=== PATIENT | female | born 1990 | race Caucasian/White ===

== ENCOUNTER → 2020-10-03 03:33 | Outpatient (CLI) | payer BC, SELFPAY ==
[2020-10-04 03:38] LABS: SARS-CoV-2 RNA PCR Negative
== END ==
PROVIDERS: PCP Physician Assistant; Visit Provider Physician Assistant
DX: Z20.822 Contact with and (suspected) exposure to COVID-19 (principal); R09.89 Other specified symptoms and signs involving the circulatory and respiratory systems
CPT/HCPCS: C9803; U0003; U0005

== ENCOUNTER 2021-11-09 00:18 | Day surgery (SDC) | payer BC, SELFPAY ==
[2021-11-05 11:58] VITALS: BMI 21.6
--- NOTE | 2021-11-05 12:06 | PC.NURSE ---
Report to the Outpatient Waiting Room, entrance under the green pavilion located off [facility], at time 1130 on date 11/09/21. OR Time: 1330. Time changes happen often and if your time is changed the preop area will call you the afternoon before. - You and your visitor will be asked to self-screen and do not enter if you have any COVID symptoms. - Only one visitor and NO children visitors are allowed at this time. - The patient visitor is requested to leave or wait in car when not with patient due to restrictions. - A mask is required within the hospital. Patients may have clear liquids (water, carbonated beverages, clear teas, apple juice) until 3 hours prior to surgery with a maximum of 20 ounces. - No food from midnight until time of surgery Take the following medications with a SIP of water the morning of surgery: VALACYCLOVIR IF NEEDED Medications to discontinue per physician: N/A Date to take last dose: N/A Please no make-up, nail beninese, hairspray, perfume, deodorant, or body powder the day of surgery. No jewelry (including any body piercings) or valuables the day of surgery, leave them at home. Please take a shower or bath the night before, or the morning of, surgery with an antibacterial soap. Wear comfortable, loose fitting clothing. - Jewelry must be removed prior to entering the operating room. Rings and piercings that are not removed may be cut off. - The hospital will not accept responsibility for valuables. - Please leave all valuables, including medications, at home the day of surgery. If you are going home after surgery, a licensed courtesy driver must drive you home. - NO public transportation without another adult. - We recommend that an adult stay with you for 24 hours following discharge. - We also recommend that you do not drive, make important decision, drink alcoholic beverages, or take any drugs that were not prescribed by your health care provider for at least 24 hours after your discharge time. Follow any additional instructions given to you from your surgeon. If you or anyone in your household have experienced Covid symptoms in the past week, please notify your surgeon or the nurse liaison at the phone number below for possible testing. Telephone instructions given to PT - DAVID NELSON and asked if any additional questions and then verbalized understanding. Patient advised to call surgeon office or pre surgery nurse liaison [phone] if any additional questions.
[2021-11-09] MEDS: ACETAMINOPHEN 500 MG TABLET 1000 MG PO (12:04)
[2021-11-09 12:19] VITALS: BP 118/77; PULSE 97; RESP 16; TEMP 36.9; O2SAT 100
[2021-11-09] MEDS: LACTATED RINGERS 1,000 ML 30 ML IV CONT (12:27)
--- NOTE | 2021-11-09 12:40 | WPDANESEPPF ---
Anes - Initial Pre Proc Eval Procedure: Operation Date: 11/09/21 13:30 Proposed Procedures p Suction Dilatation and Curettage - Srini Mera MD Date/Time: 11/09/21 12:40 Surgeon: Srini Mera MD Pre Op Diagnosis: missed AB Patient Data Age: 31 Gender: F Height: 1.65 m Weight: 57.6 kg Last Vital Signs Temp 36.9 C 11/09/21 12:19 Pulse 97 11/09/21 12:19 Resp 16 11/09/21 12:19 BP 118/77 11/09/21 12:19 Pulse Ox 100 11/09/21 12:19 O2 Del Method Room Air 11/09/21 12:19 Allergies Allergy/AdvReac Type Severity Reaction Status Date / Time No Known Allergies Allergy Unverified 11/09/21 11:43 Home Medications Medication Instructions Recorded Confirmed Type valacyclovir 1 gram tablet 1,000 mg PO Q12H PRN Outbreak 03/10/20 11/09/21 History (Valtrex) Laboratory Tests 11/09/21 12:15 Blood Type Pending Antibody Screen Pending Doses of RhIg Required 0 Patient hx anesthesia problems: none Family hx anesthesia problems: none Results Review: All pre-operative results and documents have been reviewed as part of the pre-operative evaluation. [facility] Past Medical History Medical History Anxiety HPV (human papilloma virus) anogenital infection Surgical History Surgical History Hx of colonoscopy Family History Family History Mother Diabetes mellitus Malignant lymphoma Cancer Father Asthma Sibling Depression Social History Social History Smoking status: Never smoker Alcohol intake: current Alcohol use details: OCCASIONALLY WHEN NOT Substance use: never Substance use type: does not use Living arrangements: with family Gender identity (if verbalized by the patient): Female Sexual Orientation (if Verbalized by the Patient): Straight or Heterosexual Spiritual care concerns: No Anes - Eval Final PreProcedure Day of Procedure 11/09/21 12:40 Patient weight: normal Heart: regular rate and rhythm Lungs: clear to auscultation Airway: Mallampati scale class II Neurological: alert and oriented Last oral intake: >/= 8 hours ASA classification: II Emergent: no Anesthetic plan: proceed Anesthesia type and monitoring: general GIVS and standard monitoring Results Review: All pre-operative results and documents have been reviewed as part of the pre-operative evaluation. Informed Consent: The patient's anesthetic plan and its attendant risks and benefits were discussed with the patient/family/POA. Questions were solicited and answers provided to the satisfaction of the patient/family/POA.
--- NOTE | 2021-11-09 13:34 | SUR.PREOP ---
1334-DR. COSBY AWARE PT STATES SHE SATURATED HER PAD W/BLEEDING AND CLOTS WHEN UP TO BR ~20 MINUTES AGO. NO FURTHER TESTING/ORDERS AT THIS TIME-WILL PROCEED WITH PROCEDURE.
--- NOTE | 2021-11-09 13:34 | WPDHPUPDATE1 ---
History and Physical Update Update Date/Time: 11/09/21 13:34 History and Physical has been reviewed, including an updated exam of the patient. There are NO changes in the patient's condition. Risks, benefits, and alternatives have been discussed and questions answered. Patient agrees to proceed with procedure.
--- NOTE | 2021-11-09 13:40 | PM.IMHP ---
H&P: HPI History of Present Illness Date/Time: 11/09/21 13:40 Chief Complaint: Incomplete miscarriage Narrative: 31-year-old female with incomplete miscarriage. We have agreed to perform suction D&C. She understands that there is risk of the procedure. She understands that injuries may occur as result in hospitalization, more surgery and severe illness. She understands there is risk of hemorrhage infection. No nausea, vomiting, fever, chills. No chest pain or shortness of breath. Review of Systems Review of Systems: All systems reviewed & are unremarkable except as noted in HPI and below Constitutional: Constitutional: Denies chills, Denies fatigue, Denies fever(s) and Denies weakness Eyes: Eyes: Denies blurry vision, Denies change in vision, Denies loss of peripheral vision, Denies loss of vision, Denies other visual disturbances and Denies eye pain ENT: Denies vertigo, Denies dizziness, Denies hearing loss, Denies mouth pain, Denies nasal obstruction, Denies neck mass and Denies neck pain Cardiovascular: Cardiovascular: Denies chest pain, Denies diaphoresis, Denies syncope, Denies leg edema and Denies dyspnea Respiratory: Respiratory: Denies chest congestion, Denies cough, Denies hemoptysis, Denies dyspnea and Denies wheezing Gastrointestinal: Gastrointestinal: Denies abdominal pain, Denies constipation, Denies diarrhea, Denies nausea and Denies vomiting Genitourinary: Genitourinary: Denies hematuria, Denies change in libido, Denies nocturia, Denies genital lesions, Denies flank pain and Denies urinary urgency Musculoskeletal: Musculoskeletal: Denies abnormal gait, Denies back pain, Denies myalgias, Denies arthralgias, Denies joint swelling, Denies muscle weakness and Denies neck pain Integumentary/Breasts: Skin/Breast: Denies swelling, Denies breast pain, Denies breast mass, Denies dry skin, Denies nipple discharge, Denies unusual bruising and Denies jaundice Neurologic: Denies Neuro-related abnormal movements, Denies Abnormal speech present, Denies abnormal gait, Denies behavioral changes, Denies confusion, Denies vertigo, Denies dizziness, Denies syncope, Denies loss of vision, Denies memory loss, Denies convulsions and Denies weakness Psychiatric: Psychiatric: Denies abnormal sleep pattern, Denies behavioral changes, Denies change in libido, Denies confusion, Denies depression, Denies anhedonia and Denies memory loss Endocrine: Endocrine: Reports no additional endocrine complaints, Denies change in libido and Denies fatigue Hematologic/Lymphatic: Hematologic/Lymphatic: Reports no additional hematologic/lymphatic complaints Allergic/Immunologic: Allergic/Immunologic: Reports no additional allergic/immunologic complaints and Denies wheezing PMFSH Past Medical History Medical History Anxiety HPV (human papilloma virus) anogenital infection Surgical History Surgical History Hx of colonoscopy Family History Family History Mother Diabetes mellitus Malignant lymphoma Cancer Father Asthma Sibling Depression Social History Social History Smoking status: Never smoker Alcohol intake: current Alcohol use details: OCCASIONALLY WHEN NOT Substance use: never Substance use type: does not use Living arrangements: with family Gender identity (if verbalized by the patient): Female Sexual Orientation (if Verbalized by the Patient): Straight or Heterosexual Spiritual care concerns: No Meds Home Medications and Allergies Home Medications Medication Instructions Recorded Confirmed Type valacyclovir 1 gram tablet 1,000 mg PO Q12H PRN Outbreak 03/10/20 11/09/21 History (Valtrex) Allergies Allergy/AdvReac Type Severity Reaction Status Date / Time No Known Allergies
[2021-11-09] MEDS: KETOROLAC 30 MG/ML VIAL (*BKC) IV PUSH (13:46)
[2021-11-09] MEDS: LIDOCAINE HCL 1% PF 30 ML VIAL INFILTRATE (14:02)
[2021-11-09 14:08] VITALS: BP 109/70; PULSE 85; RESP 12; O2SAT 100
--- NOTE | 2021-11-09 14:09 | W.PM.PROC2 ---
Procedure Note - Detailed Date of Procedure 11/09/21 Pre-op Diagnosis missed AB Post-op Diagnosis Same Procedure Performed Suction D&C Surgeon Srini Mera MD Anesthesia MAC Indications missed Findings normal-appearing vulva vagina and cervix to. Moderate amount of products conception within the uterus. 8 cm uterus Description of Procedure the patient was taken the operating room. She was prepped and draped in dorsal lithotomy position after induction of mac anesthesia. A speculum was placed in the vagina. Cervix grasped with tenaculum. The cervix was dilated to about 1 cm Using Ledesma dilators. A 8. Luxembourg[place] curved curette was used to perform suction D&C. The curette was introduced and vacuum was applied. The curette was removed over all surfaces of the intrauterine cavity multiple times. This was done until all the surfaces were clear and had the familiar grainy texture they can be felt through the instrument. A sharp curette was then used to curettage all the surfaces. The suction cup was then reapplied 1 more time to remove any debris. The instruments were removed. The speculum and tenaculum were removed. The patient tolerated the procedure well. She was taken recovery room stable condition. Estimated Blood Loss 50 Drains No Packing No Pathology Yes Complications No immediate complications Condition Stable Disposition PACU
[2021-11-09 14:35] VITALS: BP 98/76; PULSE 88; RESP 16
[2021-11-09 14:50] VITALS: BP 101/75; PULSE 61; RESP 16
== END 2021-11-09 15:00 | disposition home or self-care (01) ==
PROVIDERS: PCP Physician Assistant; Visit Provider Obstetrics & Gynecology
PROC: (CPT 59820; principal; 2021-11-09 13:30)
DX: O02.1 Missed abortion (principal); F41.9 Anxiety disorder, unspecified; A63.0 Anogenital (venereal) warts
CPT/HCPCS: 59820; 36415; 85461; 88305; A9270; J1885; J2250; J2405; J2704; J3010; J7120

== ENCOUNTER 2022-10-29 00:01 | Inpatient (IN) | payer BC, SELFPAY ==
[2022-10-29] VITALS (191 sets, daily range): BP systolic 105–159; BP diastolic 64–104; PULSE 67–137; RESP 18; TEMP 36.4–37; O2SAT 93–100; BMI 24.7
[2022-10-29 01:12] LABS: Basophils Percent Auto 0.1 % (0.2-1.2); Eosinophils Absolute Auto 0.1 K/mm3 (0-0.3); Eosinophils Percent Auto 1.5 % (0-4.4); Hematocrit 30.6 % (37.0-47.0); Hemoglobin 10.5 g/dL (12.0-15.0); Immature Granulocyte Absolute 0.05 K/mm3 (0.00-0.031); Immature Granulocyte Percent A 0.7 % (0-0.5); Lymphocytes Absolute Auto 1.82 K/mm3 (0.9-3.2); Lymphocytes Percent Auto 26.5 % (18.3-44.2); Mean Corpuscular HGB Conc 34.3 g/dl (32-36); Mean Corpuscular Hemoglobin 31.2 pg (26-34); Mean Corpuscular Volume 90.8 fl (80-100); Mean Platelet Volume 9.6 fl (7.4-10.4); Monocytes Absolute Auto 0.6 K/mm3 (0.1-0.6); Neutrophils Absolute Auto 4.3 K/mm3 (1.3-6.7); Neutrophils Percent Auto 62.2 % (45.5-73.1); Platelet Count Result 177 k/mm3 (150-375); Red Blood Count 3.37 M/mm3 (4.2-5.4); Red Cell Distribution Width 13.4 % (11.5-14.5); White Blood Count 6.9 K/mm3 (4.5-10.0)
--- NOTE | 2022-10-29 01:43 | LDADM ---
This patient, Marjorie Mcneill, was admitted to Labor/Delivery/Recovery 105 on 10/29/22 at 00:01. Plans for labor, pain management and were discussed with patient. Patient/family oriented to hospital policies and general routines including ID bracelet, bed and alarms, visiting hours, pain management, procedures, bathroom and other care routines, personal items, smoking policy, room service/diet and guest tray routines, security routines, and visiting hours. Patient/Family are encouraged to report perceived risks to care and to ask questions if they do not understand what they are told or what they should do. See OBIX for further documentation.
[2022-10-29] MEDS: miSOPROStol 25 MCG TABLET BY MOUTH (01:55)
[2022-10-29 04:26] LABS: Alanine Aminotransferase 17 U/L (6-35); Albumin Level 3.4 g/dL (3.5-5.1); Alkaline Phosphatase 113 U/L (38-126); Anion Gap 8 mmol/L (8-16); Aspartate Amino Transferase 29 U/L (14-36); Bilirubin,Total 0.3 mg/dL (0.2-1.3); Blood Urea Nitrogen 12 mg/dL (7-17); Carbon Dioxide 20 mmol/L (22-30); Chloride 106 mmol/L (98-107); Estimated Glomerular Filt Rate > 60; Glucose 70 mg/dL (65-110); Potassium 3.4 mmol/L (3.4-5.0); Sodium 134 mmol/L (137-145); Uric Acid 3.6 mg/dL (2.5-7.5)
--- NOTE | 2022-10-29 05:26 | WPDANESEPP ---
Anes - Eval Pre Procedure Procedure: labor epidural Date/Time: 10/29/22 05:26 Surgeon: tushar Preop Diagnosis: pain during labor Pre Op Diagnosis: IOL Patient Data Age: 32 Gender: F Height: Weight: Last Vital Signs Temp 36.8 C 10/29/22 02:11 Pulse 72 10/29/22 05:00 BP 120/78 10/29/22 05:00 O2 Del Method Room Air 10/29/22 00:56 Allergies Allergy/AdvReac Type Severity Reaction Status Date / Time No Known Allergies Allergy Verified 10/29/22 02:08 Home Medications Medication Instructions Recorded Confirmed Type valacyclovir 1 gram tablet 1,000 mg PO Q12H PRN Outbreak 03/10/20 10/29/22 History (Valtrex) labetalol 200 mg tablet 200 mg PO Q12H 10/21/22 10/29/22 History prenat.vits,jaja,pal-hcdk-cwlqx tablet 10/21/22 History Laboratory Tests 10/29/22 10/29/22 00:52 03:54 WBC 6.9 K/mm3 (4.5-10.0) RBC 3.37 L M/mm3 (4.2-5.4) Hgb 10.5 L g/dL (12.0-15.0) Hct 30.6 L % (37.0-47.0) MCV 90.8 fl (80-100) MCH 31.2 pg (26-34) MCHC 34.3 g/dl (32-36) RDW 13.4 % (11.5-14.5) Plt Count 177 k/mm3 (150-375) MPV 9.6 fl (7.4-10.4) Immature Gran % (Auto) 0.7 H % (0-0.5) Neut % (Auto) 62.2 % (45.5-73.1) Lymph % (Auto) 26.5 % (18.3-44.2) [place] % (Auto) 9.0 H % (2.6-8.5) Eos % (Auto) 1.5 % (0-4.4) Baso % (Auto) 0.1 L % (0.2-1.2) Lymph # (Auto) 1.82 K/mm3 (0.9-3.2) [place] # (Auto) 0.6 K/mm3 (0.1-0.6) Eos # (Auto) 0.1 K/mm3 (0-0.3) Baso # (Auto) 0.0 K/mm3 (0.0-0.1) Abs Immat Gran (auto) 0.05 H K/mm3 (0.00-0.031) Absolute Neuts (auto) 4.3 K/mm3 (1.3-6.7) Absolute Nucleated RBC 0.0 K/mm3 (0.0-0.012) Nucleated RBC % 0.0 % (0.0-0.2) Sodium 134 L mmol/L (137-145) Potassium 3.4 mmol/L (3.4-5.0) Chloride 106 mmol/L (98-107) Carbon Dioxide 20 L mmol/L (22-30) Anion Gap 8 mmol/L (8-16) BUN 12 mg/dL (7-17) Creatinine 0.50 L mg/dL (0.7-1.0) Estim Creat Clear Calc Not Reportable Estimated GFR > 60 (59 - ) Glucose 70 mg/dL (65-110) Uric Acid 3.6 mg/dL (2.5-7.5) Calcium 9.0 mg/dL (8.4-10.2) Total Bilirubin 0.3 mg/dL (0.2-1.3) AST 29 U/L (14-36) ALT 17 U/L (6-35) Alkaline Phosphatase 113 U/L (38-126) Total Protein 6.0 L g/dL (6.3-8.2) Albumin 3.4 L g/dL (3.5-5.1) RPR Pending Blood Type A Positive Antibody Screen Negative Patient hx anesthesia problems: none Family hx anesthesia problems: none Results Review: All pre-operative results and documents have been reviewed as part of the pre-operative evaluation. [facility] Past Medical History Medical History Anxiety HPV (human papilloma virus) anogenital infection Surgical History Surgical History Hx of colonoscopy Family History Family History Mother Diabetes mellitus Malignant lymphoma Cancer Father Asthma Sibling Depression Social History Social History Smoking status: Never smoker Alcohol intake: current Alcohol use details: OCCASIONALLY WHEN NOT Substance use: never Substance use type: does not use Lack of Transportation: No Lack of Food: Never True Current Housing: I Have Housing Concerned About Future Housing: No Difficulty Paying Gas/Electric Bills: No Difficulty Paying for Meds: No Currently Unemployed: No Education: Associate Degree Difficulty w/ Childcare or Family Care: No Living arrangements: with family Occupation/Education: occupation Gender identity (if verbalized by the patient): Fema
[2022-10-29] MEDS: LACTATED RINGERS 1,000 ML 125 ML IV CONT ×2 (06:15→11:17)
[2022-10-29] MEDS: OXYTOCIN 30 UNITS/NS 500 ML 30 UNITS/500 ML BAG IV CONT (06:22)
[2022-10-29 14:59] LABS: Rapid Plasma Reagin Non-Reactive (NonReactive)
--- NOTE | 2022-10-29 15:42 | P.PCNOB_ITS ---
OB - Delivery Note Procedure Delivery date: 10/29/22 Procedure: Events: Preeclampsia w/o severe features Induction method: AROM, Per Misoprostol Protocol and Per Pitocin Protocol Delivery monitor: External FHT, External Uterine and Internal Uterine Route of delivery: Laceration Description: None Specimen: Yes Quantitative Blood Loss (ml): 180 [place] Baby Date of : 10/29/22 Time of : 15:33 Weeks of gestation at delivery: 37 gender: Female Weight (pounds): 6 Weight (ounces): 5 presentation: vertex position: Left Occiput Anterior Placenta delivery description: Spontaneous Cord Vessel Description: 3 Vessels, Nuchal Cord, Loose (x1), Clamped/Cut and Delayed Cord Clamping score one minute: 8 score five minutes: 9 Narrative: mother and baby in stablel condition
[2022-10-29] MEDS: OXYTOCIN 30 UNITS/NS 500 ML 30 UNITS/500 ML BAG 125 UNITS IV CONT (16:18)
[2022-10-29] MEDS: BENZOCAINE 20% AER SPR (*SP) 56 GM CAN 1 SPRAY TOPICAL (20:04)
[2022-10-29] MEDS: WITCH HAZEL 40 PADS 1 PAD TOPICAL (20:04)
--- NOTE | 2022-10-29 20:22 | OBPPTRN ---
Patient transferred to post room # via ( ). Support person present. Oriented to unit, room, information board, rooming in, admission packet and security measures. Patient verbalizes understanding.
[2022-10-30] VITALS: BP 111/67; PULSE 83; RESP 18; TEMP 36.6; O2SAT 99
[2022-10-30 04:00] VITALS: BP 109/73; PULSE 80; RESP 16; TEMP 37; O2SAT 100
[2022-10-30 04:55] LABS: Hematocrit 29.4 % (37.0-47.0); Hemoglobin 10.1 g/dL (12.0-15.0)
--- NOTE | 2022-10-30 07:38 | PM.OBPNVD ---
OB - PN: Subj Subjective Date/time seen: 10/30/22 07:38 Patient comments: no complaints and pain well controlled baby status: doing well and nursing well [place] feeding status: exclusively breast feeding Narrative: BPs normotensive since delivery without labetalol. Denies OSMAN/BV/EP. Feels well. OB - PN: Obj Data Labs 10/30/22 04:44 10/29/22 03:54 Labs: Laboratory Results - last 24 hr 10/29/22 10/30/22 00:52 04:44 Hgb 10.1 L Hct 29.4 L RPR Non-reactive OB - PN A/P Plan day: 1 Plan: routine care Comments: continue to hold labetalol. home tomorrow likely Time Spent With Patient Time: Total time spent is greater than 50% in coordination of care (as documented) at patient's floor/unit and/or counseling patient: Time with patient: less than 15 minutes Exam Narrative: NAD abdomen soft, nontender, fundus firm below the umbilicus Extremities nontender, 1+ edema
[2022-10-30 08:20] VITALS: BP 117/84; PULSE 80; RESP 16; TEMP 36.5; O2SAT 99
[2022-10-30] MEDS: MULTIVIT/MIN/PREN/FOL AC/IRON TABLET 1 TAB PO (08:32)
[2022-10-30] MEDS: DOCUSATE SODIUM 100 MG CAPSULE PO ×2 (08:32→17:31)
[2022-10-30 12:30] VITALS: BP 111/79
[2022-10-30 17:00] VITALS: BP 129/88
[2022-10-30 20:00] VITALS: BP 126/91; PULSE 90; RESP 18; TEMP 36.8; O2SAT 100
[2022-10-31] VITALS: BP 113/88
[2022-10-31 04:00] VITALS: BP 118/87
--- NOTE | 2022-10-31 05:28 | PM.OBPNVD ---
OB - PN: Subj Subjective Date/time seen: 10/31/22 05:28 Patient comments: no complaints and pain well controlled baby status: doing well and nursing well Narrative: BPs 111-126/79/91 last 24 hrs. Denies preE sx. OB - PN: Obj Data Labs 10/30/22 04:44 10/29/22 03:54 OB - PN A/P Plan day: 2 Plan: routine care and discharge home Comments: Precautions given BP check 1 week. Time Spent With Patient Time: Total time spent is greater than 50% in coordination of care (as documented) at patient's floor/unit and/or counseling patient: Time with patient: less than 15 minutes Exam Narrative: NAD abdomen soft, nontender, fundus firm below the umbilicus Extremities nontender, 1+ edema
--- NOTE | 2022-10-31 05:30 | PM.OBDSVD ---
DS: Admitting Diagnosis Discharge Date 10/31/22 Admitting Diagnosis Preeclampsia at term DS: Discharge Diagnosis Discharge Diagnosis (1) Mild preeclampsia: Code(s): O14.00 - Mild to moderate pre-eclampsia, unspecified trimester Status: Acute (2) , delivered: Code(s): O80 - Encounter for full-term uncomplicated delivery Status: Acute OB - DS: Summary Hospital Course Hospital Course: Marjorie was admitted at 37w for IOL for mild preEclampsia. She proceeded to have an uncomplicated vaginal delivery and course and was discharge home on PPD2. Her labetalol was discontinued after delivery as she was normotensive without it. OB Procedures : NST and Ultrasound OB Procedures Intrapartum: Spontaneous Vag Delivery OB Procedures: : None Peripartum Data Delivery Method: Natural Vaginal complications: none Status at Discharge Functional status at discharge: independent ambulation Time Spent with Patient Time attestation: Total time spent providing and/or coordinating discharge services: Exam Narrative: NAD abdomen soft, appropriately tender Ext non tender, 1+ edema DS: Data Data Completed and Pending Pending studies at discharge: Pending at discharge 10/29/22 15:36 Surgical [PTH] Routine Discharge Plan Discharge Attending physician on discharge: Myla Yo Discharging Clinician: Myla Yo Anticipated Discharge Date/Time: 10/31/22 05:29 Patient Disposition: Home, Self-Care Activity: pelvic rest Diet: regular Patient Instructions: Antibiotic Form Stand Alone Forms: General Discharge Information Follow-up/Referrals: Srini Mera MD [Physician] - 1 Week Discharge Medications: Continued #2 Tablet 1 tablet DAILY Discontinued valacyclovir [Valtrex] 1 gram tablet 1,000 mg PO Q12H PRN (Reason: Outbreak) labetalol 200 mg Tablet 200 mg PO Q12H Date of admission: 10/29/22 00:01 Primary Care Provider: Mayank Wetzel Admitting Provider: Srini Mera Attending physician on admission: Srini Mera Condition: Stable
[2022-10-31 09:40] VITALS: BP 124/83; PULSE 104; RESP 16; TEMP 36.8; O2SAT 100
[2022-10-31] MEDS: MULTIVIT/MIN/PREN/FOL AC/IRON TABLET 1 TAB PO (09:45)
[2022-10-31] MEDS: DOCUSATE SODIUM 100 MG CAPSULE PO (09:45)
[2022-11-02 09:29] VITALS: BP 134/91; PULSE 82; RESP 18; TEMP 37.4; O2SAT 100
== END 2022-10-31 12:15 | disposition home or self-care (01) | DRG 806 ==
LOC: ANHOB2 10-31 11:23 → ANHLDR 11-02 13:23 → ANHOB2 11-02 13:23
PROVIDERS: Advanced Practice Midwife; Admitting Provider Obstetrics & Gynecology; PCP Physician Assistant; Visit Provider Obstetrics & Gynecology
DX: O14.04 Mild to moderate pre-eclampsia, complicating childbirth (principal); O98.32 Other infections with a predominantly sexual mode of transmission complicating childbirth; Z37.0 Single live birth; Z3A.37 37 weeks gestation of pregnancy; O13.4 Gestational [pregnancy-induced] hypertension without significant proteinuria, complicating childbirth; O69.82X0 Labor and delivery complicated by other cord entanglement, without compression, not applicable or unspecified; A60.00 Herpesviral infection of urogenital system, unspecified
CPT/HCPCS: 36415; 80053; 84550; 85014; 85018; 85025; 86592; 86850; 86900; 86901; 88307; A9270; J2590; J2795; J7120